=== PATIENT | female | born 1975 ===

== ENCOUNTER 2024-04-07 23:55 | Emergency (ER) | payer OTHER, SELFPAY ==
[2024-04-08] VITALS: BP 139/86; PULSE 85; RESP 18; TEMP 36.8; O2SAT 95; BMI 25.7
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
[2024-04-08] MEDS: diazePAM 5 MG TABLET PO (00:35)
[2024-04-08] MEDS: KETOROLAC 30 MG/ML VIAL IM (00:35)
[2024-04-08] MEDS: CYCLOBENZAPRINE 10 MG PREPACK 1 BOTTLE MISC (01:45)
[2024-04-08 01:50] VITALS: BP 130/77; PULSE 81; RESP 16; O2SAT 99
== END 2024-04-08 01:51 | disposition home or self-care (01) ==
PROVIDERS: Emergency Provider Emergency Medicine
DX: S16.1XXA Strain of muscle, fascia and tendon at neck level, initial encounter (principal); V29.99XA Rider (driver) (passenger) of other motorcycle injured in unspecified traffic accident, initial encounter
CPT/HCPCS: 96372; 99283; 99284; J1885

== ENCOUNTER 2024-06-14 07:14 | Emergency (ER) | payer OTHER, SELFPAY ==
[2024-06-14] VITALS (11 sets, daily range): BP systolic 118–150; BP diastolic 65–85; PULSE 70–111; RESP 16; TEMP 36.8; O2SAT 95–100; BMI 26.5
--- NOTE | 2024-06-14 07:25 | DI.RAD.S_ITS ---
PROCEDURE: XR HIP W PEL IF DONE LT 2V INDICATIONS: hip pain TECHNIQUE: 2 views of the hip were acquired. COMPARISON: None. FINDINGS/IMPRESSION: Intratrochanteric fracture of the left femur, with extension into the left intramedullary saji. Dictated by: Anson Bay M.D. on 06/14/2024 at 8:29 Approved by: Anson Bay M.D. on 06/14/2024 at 8:29
--- NOTE | 2024-06-14 07:25 | DI.RAD.S_ITS ---
PROCEDURE: XR FEMUR LT MIN 2V INDICATIONS: femur pain TECHNIQUE: 2 views of the femur were acquired. COMPARISON: [facility], CR, XR HIP W PEL IF DONE LT 2V, 06/14/2024, 7:26. FINDINGS: Bones: Intratrochanteric fracture of the left femur, with extension to the intramedullary saji. Healed distal femur fracture. Soft tissues: No suspicious soft tissue calcifications or masses. IMPRESSION: Intratrochanteric fracture of the left femur, with extension to the intramedullary saji. Dictated by: Anson Bay M.D. on 06/14/2024 at 8:28 Approved by: Anson Bay M.D. on 06/14/2024 at 8:29
[2024-06-14] MEDS: MORPHINE 4 MG/ML INJ IV ×2 (07:45→08:27)
[2024-06-14] MEDS: KETOROLAC 30 MG/ML VIAL 15 MG IV (07:45)
--- NOTE | 2024-06-14 08:16 | ED_ITS ---
HPI - Fall General Chief Complaint: Fall Stated Complaint: fall,hip injury, lots of pain Time Seen by Provider: 06/14/24 07:18 History of Present Illness HPI Narrative: 41-year-old female complaining of left hip pain after a ground level fall yesterday while walking on ice. Had a previous femoral nail and also recently had surgery on her tibia and fibula by Dr. Lowe at [facility]. Patient reports being unable to weight bear. She has not anticoagulated. Took ibuprofen at midnight has had no pain medication since then. Denies other injuries. Related Data Home Medications Medication Instructions Recorded Confirmed methocarbamol 500 mg tablet 500 mg PO 3XD 04/08/24 04/08/24 Previous Rx's Medication Instructions Recorded diazepam 5 mg tablet (Valium) 5 mg PO BID PRN muscle spasm #7 04/08/24 tabs Allergies Allergy/AdvReac Type Severity Reaction Status Date / Time hydromorphone [From Dilaudid] Allergy Unknown Verified 04/08/24 00:17 Patient History Social History Smoking Status: Former smoker Smoking Status: Former smoker Exam Initial Vital Signs Initial Vital Signs: Vital Signs Temperature 98.3 F 06/14/24 07:24 Pulse Rate 104 H 06/14/24 07:24 Respiratory Rate 16 06/14/24 07:24 Blood Pressure 132/80 06/14/24 07:24 Pulse Oximetry 99 06/14/24 07:24 Oxygen Delivery Method Room Air 06/14/24 07:24 Appears to be in painful distress. Difficulty moving her right leg secondary to pain HENMT HENMT Other: Atraumatic normocephalic Resp Other: Normal respiratory effort Extrem Other: No shortening or rotation appreciated in the left lower extremity. She has intact sensation capillary refill and pulses in the left lower extremity. Surgical scars noted over the femur. She is tender in the area of the left hip. Course Orders Ordered: ED Orders 06/14/24 07:25 XR femur LT min 2V Stat XR hip w pel if done LT 2V Stat 06/14/24 07:35 CBC Auto Diff [Complete Blood Count AUTO DIFF] Stat CMP [Comprehensive Metabolic Panel] Stat Trop I [Troponin I] Stat 06/14/24 09:14 Chest [XR chest 1V] Stat EKG-12 Lead Stat Discontinued Medications Bupivacaine HCl (Bupivacaine 0.5% Mdv) 50 ml INJ INTRA-OP ONE Stop: 06/14/24 09:15 Last Admin: 06/14/24 10:05 Dose: Not Given Documented By: RB Bupivacaine HCl (Bupivacaine 0.5% (Pf) 30 Ml Vial) 30 ml INJ INTRA-OP ONE Stop: 06/14/24 09:31 Last Admin: 06/14/24 10:06 Dose: Not Given Documented By: RB Ketamine HCl (Ketamine 50 Mg/5 Ml *Syringe*) 6.8039 mg 0.1 mg/kg (6.8039 mg) IV NOW ONE Stop: 06/14/24 08:38 Last Admin: 06/14/24 09:04 Dose: 6.8039 mg Documented By: CTS Ketorolac Tromethamine (Ketorolac 30 Mg/Ml Vial) 15 mg IV NOW ONE Stop: 06/14/24 07:26 Last Admin: 06/14/24 07:45 Dose: 15 mg Documented By: RB Lorazepam (Lorazepam 2 Mg/Ml Inj) 0.5 mg IV NOW ONE Stop: 06/14/24 09:07 Last Admin: 06/14/24 09:18 Dose: 0.5 mg Documented By: RB Morphine Sulfate (Morphine 4 Mg/Ml Inj) 4 mg IV NOW ONE Stop: 06/14/24 07:46 Last Admin: 06/14/24 07:45 Dose: 4 mg Documented By: RB Morphine Sulfate (Morphine 4 Mg/Ml Inj) 4 mg IV NOW ONE Stop: 06/14/24 08:24 Last Admin: 06/14/24 08:27 Dose: 4 mg Documented By: RB Non-Formulary Medication (Moprphine) 4 mg IV NOW ONE Stop: 06/14/24 07:28 Last Admin: 06/14/24 08:22 Dose: Not Given Documented By: RB Ondansetron HCl (Ondansetron 4 Mg/2 Ml Inj) 4 mg IV NOW ONE Stop: 06/14/24 08:24 Last Admin: 06/14/24 08:26 Dose: 4 mg Documented By: RB Pantoprazole Sodium (Pantoprazole Dr 20 Mg Tablet) 20 mg PO NOW ONE Stop: 06/14/24 08:21 Last Admin: 06/14/24 08:26 Dose: 20 mg Documented By: RB Reevaluation(s) Reevaluation #1: At 8:40 a.m., continued pain after 2 doses of morphine, adding sub dissociated ketamine Reevaluation #2: At 9:20 a.m., the patient is now complaining of chest pain. It is midsternal waxing and waning and associated with nausea. Says she has had similar pain in the past with negative evaluations. She has a smoker, there is no family history of cardiac disease she has not a diabetic no known history of elevated cholesterol or hypertension. Her chest is nontender her abdomen is nontender he is hyperventilating and retching. Additionally, patient has continued uncontrolled pain. I offered a femoral nerve block and she wishes to proceed. Reevaluation #3: After lorazepam, patient's chest pain resolved, she is tolerating hip pain without difficulty down, declines femoral block at this point. We are awaiting transfer. Consultations Consultation #1: Discussed with Dr. Tima Lowe [facility] at 8:30 a.m.. Requested I transfer the patient to [facility] where he or a partner who will see. Consultation #2: Case is discussed with Dr. Atkins, [facility]. He accepts the patient in transfer Vital Signs Vital signs: Vital Signs - 8 hr 06/14/24 07:24 06/14/24 07:24 06/14/24 07:30 Temperature 98.3 F Pulse Rate 104 H 111 H 92 H Respiratory Rate 16 Blood Pressure 132/80 Pulse Oximetry 99 98 98 Oxygen Delivery Method Room Air 06/14/24 08:00 06/14/24 08:30 06/14/24 08:30 Temperature Pulse Rate 84 82 Respiratory Rate Blood Pressure 149/65 H Pulse Oximetry 95 100 Oxygen Delivery Method 06/14/24 09:00 06/14/24 09:00 06/14/24 09:30 Temperature Pulse Rate 77 86 Respiratory Rate Blood Pressure 150/85 H Pulse Oximetry 100 99 Oxygen Delivery Method 06/14/24 09:30 06/14/24 10:00 06/14/24 10:00 Temperature Pulse Rate 84 Respiratory Rate Blood Pressure 147/78 H 137/80 Pulse Oximetry 100 Oxygen Delivery Method 06/14/24 10:30 06/14/24 10:30 06/14/24 11:00 Temperature Pulse Rate 70 Respiratory Rate Blood Pressure 127/73 118/77 Pulse Oximetry 100 Oxygen Delivery Method 06/14/24 11:00 Temperature Pulse Rate 72 Respiratory Rate Blood Pressure Pulse Oximetry 99 Oxygen Delivery Method - Fall Lab Data Lab results narrative: Troponin is normal, CMP is unremarkable, 06/14/24 07:35 06/14/24 07:35 Labs: Lab Results 06/14/24 Range/Units 07:35 WBC 8.5 (4.5-11.0) X10^3/uL RBC 3.57 L (4.0-5.2) X10^6/uL Hgb 11.4 L (12.0-16.0) g/dL Hct 33.9 L (36-46) % MCV 95.1 (80-100) fL MCH 31.9 (26-34) PG MCHC 33.6 (30-36) % RDW 15.0 H (11.6-14.8) % Plt Count 354 (150-400) X10^3/uL Neut % (Auto) 86.9 H (50-75) % Lymph % (Auto) 7.4 L (25-40) % [place] % (Auto) 5.4 (3-14) % Eos % (Auto) 0.1 L (2-4) % Baso % (Auto) 0.2 (0-2) % Neut # (Auto) 7400 H (0057-9655) /uL Lymph # (Auto) 600 L (0749-7400) /uL [place] # (Auto) 500 (0-900) /uL Eos # (Auto) 0 (0-450) /uL Baso # (Auto) 0 (0-100) /uL Sodium 137 (137-145) mmol/L Potassium 3.8 (3.4-5.1) mmol/L Chloride 102 (98-107) mmol/L Carbon Dioxide 23 (22-32) mmol/L BUN 14 (7-17) mg/dL Creatinine 0.66 (0.52-1.04) mg/dL Estimated GFR > 60 (>60) mL/min BUN/Creatinine Ratio 21.2 (6-22) Glucose 124 H (70-100) mg/dL Calcium 9.2 (8.4-10.2) mg/dL Total Bilirubin 0.4 (0.2-1.3) mg/dL AST 47 H (14-36) IU/L ALT 20 (<35) IU/L Alkaline Phosphatase 109 (38-126) U/L Troponin I < 0.012 (0.01-0.034) ng/mL Total Protein 7.6 (6.3-8.2) g/dL Albumin 4.6 (3.5-5.0) g/dL Globulin 3.0 (1.7-4.1) g/dL Albumin/Globulin Ratio 1.5 (1.0-2.8) Imaging Data Extremity x-ray #1: My Impression: Fracture of the left hip around femoral saji Extremity x-ray #2: My Impression: Left femur, femoral saji with periprosthetic hip fracture Chest x-ray: My Impression: No acute disease Radiologist's Impression: Negative chest x-ray ECG Data Interpretation: ECG shows normal sinus rhythm at 79, no acute ST segment changes no previous infarction normal EKG MDM Narrative Medical decision making narrative: 49-year-old female status post intramedullary nail of the left femur presenting with left hip pain after a ground level fall yesterday. She denies other injuries. Imaging is remarkable for a fracture of the femoral neck around the femoral nail. It was a bit difficult to control her pain initially, ultimately a small dose of lorazepam was quite effective in addition to other pain medications including ketamine and morphine. The patient had an episode of chest pain. This occurred in the setting of nausea after having received narcotics. Did not have an elevated troponin her EKG was normal her chest x-ray was normal I considered but do not suspect pulmonary embolism. Patient is stable for transfer by ground ambulance to [facility]. Discharge Plan Departure Patient Disposition: [facility] Clinical Impression: Closed fracture of left hip Qualifiers: Encounter type: initial encounter Qualified Code(s): S72.002A - Fracture of unspecified part of neck of left femur, initial encounter for closed fracture Chest pain Qualifiers: Chest pain type: unspecified Qualified Code(s): R07.9 - Chest pain, unspecified Prescriptions: No Action methocarbamol 500 mg tablet 500 mg PO 3XD diazepam [Valium] 5 mg tablet 5 mg PO BID PRN (Reason: muscle spasm) Qty: 7 0RF
[2024-06-14] MEDS: PANTOPRAZOLE DR 20 MG TABLET PO (08:26)
[2024-06-14] MEDS: ONDANSETRON 4 MG/2 ML INJ IV (08:26)
[2024-06-14] MEDS: KETAMINE 50 MG/5 ML *SYRINGE 6.8039 MG IV (09:04)
--- NOTE | 2024-06-14 09:14 | DI.RAD.S_ITS ---
PROCEDURE: XR CHEST 1V INDICATIONS: chest pain TECHNIQUE: One view of the chest was acquired. COMPARISON: None. FINDINGS: Surgical changes and devices: None. Lungs and pleura: Lungs are clear. No pleural effusions or pneumothorax. Mediastinum: Mediastinal contours appear normal. Heart size is normal. Bones and chest wall: No suspicious bony lesions. Overlying soft tissues appear unremarkable. IMPRESSION: No acute cardiothoracic process. Dictated by: Lionel Jane M.D. on 06/14/2024 at 9:59 Approved by: Lionel Jane M.D. on 06/14/2024 at 9:59
[2024-06-14] MEDS: LORazepam 2 MG/ML INJ 0.5 MG IV (09:18)
--- NOTE | 2024-06-14 09:23 | EKG_ITS ---
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
[2024-06-14 09:34] LABS: Add Manual Diff / Slide Review NO; Basophils Absolute Auto 0 /uL (0-100); Basophils Percent Auto 0.2 % (0-2); Eosinophils Absolute Auto 0 /uL (0-450); Eosinophils Percent Auto 0.1 % (2-4); Hematocrit 33.9 % (36-46); Hemoglobin 11.4 g/dL (12.0-16.0); Lymphocytes Absolute Auto 600 /uL (1100-4500); Lymphocytes Percent Auto 7.4 % (25-40); Mean Corpuscular HGB Conc 33.6 % (30-36); Mean Corpuscular Hemoglobin 31.9 PG (26-34); Mean Corpuscular Volume 95.1 fL (80-100); Monocytes Absolute Auto 500 /uL (0-900); Monocytes Percent Auto 5.4 % (3-14); Neutrophils Absolute Auto 7400 /uL (1500-7000); Neutrophils Percent Auto 86.9 % (50-75); Platelet Count 354 X10^3/uL (150-400); Red Blood Cell Count 3.57 X10^6/uL (4.0-5.2); White Blood Cell Count 8.5 X10^3/uL (4.5-11.0)
[2024-06-14 09:40] LABS: Alanine Aminotransferase 20 IU/L (<35); Albumin 4.6 g/dL (3.5-5.0); Albumin Globulin Ratio 1.5 (1.0-2.8); Alkaline Phosphatase 109 U/L (38-126); Aspartate Aminotransferase 47 IU/L (14-36); BUN Creatinine Ratio 21.2 (6-22); Bilirubin Total 0.4 mg/dL (0.2-1.3); Blood Urea Nitrogen 14 mg/dL (7-17); Calcium 9.2 mg/dL (8.4-10.2); Carbon Dioxide 23 mmol/L (22-32); Chloride 102 mmol/L (98-107); Estimated Glomerular Filt Rate > 60 mL/min (>60); Glucose 124 mg/dL (70-100); HEMOLYSIS < 15 (0-50); Potassium 3.8 mmol/L (3.4-5.1); Sodium 137 mmol/L (137-145); Total Protein 7.6 g/dL (6.3-8.2)
[2024-06-14 09:53] LABS: Troponin I < 0.012 ng/mL (0.01-0.034)
--- NOTE | 2024-06-14 10:00 | PC.NURSE ---
Patient finds relief in Ativan administration and has declined provider on performed pain block. This RN returned bupivacaine 0.5% to pharmacy.
--- NOTE | 2024-06-14 10:47 | PC.NURSE ---
This RN went to check on patient and they are resting with their eyes closed with noted chest rise and fall.
--- NOTE | 2024-06-14 11:27 | PC.NURSE ---
This RN called and gave verbal report to CELIA Ramirez at [facility]. This RN informed her of this ED return phone number incase of further questions.
--- NOTE | 2024-06-14 11:37 | PC.NURSE ---
Patient states that they are unable to urinate with bedpan or purewick. Patient asks for a catheter. This RN asked provider who asked for RN to place a full catheter as patient is likely to need surgery. Order placed. Female RN and WELDER SETTER [employer] MACHINE placed catheter.
--- NOTE | 2024-06-14 12:14 | PC.NURSE ---
This RN gave verbal report to CELIA Gonsalves at [facility]. This RN gave RN return phone number for this ED for any further concerns,
--- NOTE | 2024-06-14 12:42 | PC.NURSE ---
This patient had Ketamine given by chargeback analyst who then gave the remaining vial to this RN for any further administrations. This medication had a cap on which this RN didn't open or access. This RN called pharmacy concerning how to waste this medication as the medication was brought by the pharmacist Jayesh. This RN talked to Jayesh in how to waste this medication. Pharmacist informed this RN that this medication must be wasted but is unable to be through the Pyxis due to being brought to department. Jayesh asked for the remainder of this medication be returned to the pharmacy. This RN gave the remainder of this medication to to [facility] with Jayesh the pharmacist in full view of the exchange.
== END 2024-06-14 12:16 | disposition short-term general hospital (02) ==
PROVIDERS: Emergency Provider Emergency Medicine
DX: S72.002A Fracture of unspecified part of neck of left femur, initial encounter for closed fracture (principal); W00.0XXA Fall on same level due to ice and snow, initial encounter; Z98.890 Other specified postprocedural states; Z87.891 Personal history of nicotine dependence; R07.9 Chest pain, unspecified
CPT/HCPCS: 36415; 71045; 73502; 73552; 80053; 84484; 85025; 93005; 96374; 96375; 96376; 99284; 99285; J1885; J2060; J2270; J2405

== ENCOUNTER 2024-07-16 01:46 | Emergency (ER) | payer OTHER, SELFPAY ==
[2024-07-16] VITALS (8 sets, daily range): BP systolic 112–127; BP diastolic 59–78; PULSE 63–82; RESP 16–18; TEMP 36.2; O2SAT 95–100; BMI 25.8
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
--- NOTE | 2024-07-16 05:33 | DI.CT.S_ITS ---
PROCEDURE: CT HEAD/BRAIN WO CON INDICATIONS: dizziness, no URI symptoms TECHNIQUE: Noncontrast 4.5 mm thick angled axial sections acquired from the foramen magnum to the vertex, with coronal and sagittal reformats. For radiation dose reduction, the following was used: automated exposure control, adjustment of mA and/or kV according to patient size. COMPARISON: None. FINDINGS: Image quality: Diagnostic. CSF spaces: Basal cisterns are patent. No extra-axial fluid collections. Ventricles are normal in size and shape. Brain: No midline shift. No intracranial masses or hemorrhage. [place]-white matter interface is normal. Skull and face: Calvarium and visualized facial bones are intact, without suspicious lesions. Sinuses: Visualized sinuses and mastoids are clear. IMPRESSION: No acute intracranial pathology. Approved by: Johnny Sandy M.D. on 07/16/2024 at 7:41
--- NOTE | 2024-07-16 05:37 | DI.CT.S_ITS ---
PROCEDURE: CT ANGIO HEAD AND NECK INDICATIONS: severe dizziness TECHNIQUE: After the administration of intravenous contrast, 1 mm thick sections acquired from the aortic arch through the [place] of [place]. 3-dimensional kuypoec-dxymvtoun-yrcsjqogze (MIP) and/or volume rendering reformats were acquired of the central intracranial vasculature and neck separately. For radiation dose reduction, the following was used: automated exposure control, adjustment of mA and/or kV according to patient size. COMPARISON: [facility], CT, CT HEAD/BRAIN WO CON, 07/16/2024, 5:45. FINDINGS: Image quality: Diagnostic. BRAIN: Please see the separately dictated noncontrast head CT performed at the same time. No abnormal intracranial arterial enhancement. HEAD CT ANGIOGRAPHY: Anterior circulation: Intracranial internal carotid arteries are normal in size and flow. The flow within the paired anterior cerebral arteries is normal and symmetric. The flow within the middle cerebral arteries is normal and symmetric. The anterior communicating artery is seen. No aneurysms are seen. Posterior circulation: Visualized portions of the vertebral arteries demonstrate normal caliber, and join to form a normal appearing basilar artery. Flow within the posterior cerebral arteries is normal and symmetric. No aneurysms are seen. NECK CT ANGIOGRAPHY: Carotid system: The great vessels demonstrate a conventional anatomy as they arise from the aortic arch. The origins of the common carotid arteries appear patent. The common carotid arteries demonstrate normal caliber and courses. The bifurcation regions are both widely patent. The internal carotid arteries demonstrate normal calibers and courses. Posterior circulation: The origins of the vertebral arteries both appear widely patent. The more superior extracranial portions of both vertebral arteries also demonstrate normal courses and calibers. They join to form a normal appearing basilar artery. Soft tissues: Visualized neck soft tissues demonstrate no suspicious abnormalities. Bones: No suspicious bony lesions. Visualized cervical spine appears normally aligned. IMPRESSION: No significant intracranial arterial abnormality is seen. No significant abnormality is seen within the arteries of the neck. Any quantitative measurements of stenosis were performed using NASCET criteria. Approved by: Johnny Sandy M.D. on 07/16/2024 at 7:45
--- NOTE | 2024-07-16 05:40 | DI.RAD.S_ITS ---
PROCEDURE: XR CHEST 1V INDICATIONS: chest pain TECHNIQUE: One view of the chest was acquired. COMPARISON: [facility], CR, XR CHEST 1V, 06/14/2024, 9:17. FINDINGS: Surgical changes and devices: None. Lungs and pleura: Lungs are clear. No pleural effusions or pneumothorax. Mediastinum: Mediastinal contours appear normal. Heart size is normal. Bones and chest wall: No suspicious bony lesions. Overlying soft tissues appear unremarkable. IMPRESSION: No acute cardiopulmonary abnormality is seen. Approved by: Johnny Sandy M.D. on 07/16/2024 at 7:45
--- NOTE | 2024-07-16 05:40 | EKG_ITS ---
[address] [address] Test Date: 2024-07-16 Pat Name: Stacey Gomez Department: [facility] Room: Gender: Female Occupational Therapist Aide: HARDIK : 1975 Requested By: Order Number: [id number] Reading MD: Sunny Hancock Measurements Intervals [place] Rate: 62 P: 39 [place]: 156 QRS: -11 QRSD: 84 T: 26 QT: 414 QTc: 420 Interpretive Statements Normal sinus rhythm Electronically Signed On 07-17-2024 8:45:18 PDT by Sunny Hancock
[2024-07-16] MEDS: diphenhydrAMINE 50 MG/ML VIAL IV (05:43)
--- NOTE | 2024-07-16 06:10 | PC.NURSE ---
pt states benadryl relieved the urge to cough and vomit but not the dizziness, dizziness decreases as long as she keeps her eyes closed but will increase if she lays her head back pt describes it as feeling like I'm drunk without drinking
[2024-07-16 06:14] LABS: Add Manual Diff / Slide Review NO; Basophils Absolute Auto 100 /uL (0-100); Basophils Percent Auto 1.2 % (0-2); Eosinophils Absolute Auto 0 /uL (0-450); Eosinophils Percent Auto 0.6 % (2-4); Hematocrit 33.6 % (36-46); Hemoglobin 11.4 g/dL (12.0-16.0); Lymphocytes Absolute Auto 700 /uL (1100-4500); Lymphocytes Percent Auto 11.9 % (25-40); Mean Corpuscular HGB Conc 33.9 % (30-36); Mean Corpuscular Hemoglobin 32.6 PG (26-34); Mean Corpuscular Volume 96.2 fL (80-100); Monocytes Absolute Auto 200 /uL (0-900); Monocytes Percent Auto 3.6 % (3-14); Neutrophils Absolute Auto 5000 /uL (1500-7000); Neutrophils Percent Auto 82.7 % (50-75); Platelet Count 291 X10^3/uL (150-400); Red Blood Cell Count 3.49 X10^6/uL (4.0-5.2); Red Cell Distribution Width 14.9 % (11.6-14.8); White Blood Cell Count 6.1 X10^3/uL (4.5-11.0)
[2024-07-16 06:23] LABS: Alanine Aminotransferase 12 IU/L (<35); Albumin 4.3 g/dL (3.5-5.0); Albumin Globulin Ratio 1.4 (1.0-2.8); Alkaline Phosphatase 161 U/L (38-126); Aspartate Aminotransferase 20 IU/L (14-36); BUN Creatinine Ratio 27.3 (6-22); Bilirubin Total 0.3 mg/dL (0.2-1.3); Blood Urea Nitrogen 15 mg/dL (7-17); Calcium 9.4 mg/dL (8.4-10.2); Carbon Dioxide 27 mmol/L (22-32); Chloride 103 mmol/L (98-107); Creatine Kinase 53 U/L (30-135); Estimated Glomerular Filt Rate > 60 mL/min (>60); Globulin 3.1 g/dL (1.7-4.1); Glucose 125 mg/dL (70-100); HEMOLYSIS 23 (0-50); Lipase 68 U/L (23-300); Potassium 3.8 mmol/L (3.4-5.1); Sodium 139 mmol/L (137-145); Total Protein 7.4 g/dL (6.3-8.2)
[2024-07-16 06:36] LABS: Troponin I < 0.012 ng/mL (0.01-0.034)
[2024-07-16 06:49] LABS: Influenza A - CEPHEID Flu A NEGATIVE (NEGATIVE); Influenza B - CEPHEID Flu B NEGATIVE (NEGATIVE); Respiratory Syncytial Virus Negative (Negative)
[2024-07-16 06:58] LABS: COVID-19 CEPHEID 4-PLEX PCR Negative (Negative)
[2024-07-16] MEDS: MECLIZINE HCL 12.5 MG TABLET 25 MG PO (08:53)
== END 2024-07-16 09:27 | disposition home or self-care (01) ==
PROVIDERS: Emergency Medicine; Emergency Provider Emergency Medicine
DX: R42 Dizziness and giddiness (principal); R07.9 Chest pain, unspecified; R11.0 Nausea; Z87.891 Personal history of nicotine dependence
CPT/HCPCS: 0241U; 70450; 70496; 70498; 71045; 80053; 82550; 83690; 84484; 85025; 93005; 96374; 99284; J1200; Q9967

== ENCOUNTER → 2024-08-02 08:41 | Outpatient (CLI) | payer OTHER, SELFPAY ==
--- NOTE | 2024-08-02 08:44 | DI.RAD.S_ITS ---
PROCEDURE: FL JOINT INJECTION LARGE RT INDICATIONS: Adhesive capsulltis lt shoulder COMPARISON: None. TECHNIQUE: The indications, alternatives, benefits, risks, and complications of the procedure were explained to the patient. Written informed consent was obtained and placed in the chart. The patient was placed in an appropriate position on the fluoroscopy table, and a site was chosen for percutaneous access under fluoroscopic guidance. The site was prepped and draped in a sterile fashion. Local anesthetic was administered using a 1% lidocaine solution. A hypodermic or spinal needle was then used to access the symptomatic joint. Intra-articular location of the needle tip was confirmed by injecting a small amount of contrast, followed by steroid administration. The needle was then withdrawn, and a bandage applied to the puncture site. FINDINGS: Joint injected: Right shoulder Medications injected: 4 mL of 40 mg/mL Kenalog and 0.5% Ropivacaine mixture. Patient's pain before injection: 8 out of 10. Patient's pain after injection: 1 out of 10. Complications: None. IMPRESSION: Successful fluoroscopically guided administration of steroid and anaesthetic solution into the right shoulder joint. Dictated by: Ghada Saunders M.D. on 08/02/2024 at 12:49 Approved by: Ghada Saunders M.D. on 08/02/2024 at 12:50
[2024-08-02] MEDS: TRIAMCINOLONE 40 MG/ML VIAL INTRA-ARTI (10:19)
[2024-08-02] MEDS: LIDOCAINE 1% 20 ML INJ (10:19)
[2024-08-02] MEDS: ROPIVACAINE 0.5% PF 5 MG/ML 20ML VIAL 20 ML INJ (10:19)
== END ==
LOC: RAD 08:43
PROVIDERS: PCP Nurse Practitioner Family; Referring Provider Orthopaedic Surgery; Visit Provider Orthopaedic Surgery
DX: M75.02 Adhesive capsulitis of left shoulder (principal)
CPT/HCPCS: 20610; 77002; Q9967